=== PATIENT | male | born 1985 | race Caucasian/White ===

== ENCOUNTER → 2019-06-29 | Outpatient (CLI) | payer OTHER ==
[~2019-06-29] MED LIST: GADOBENATE DIMEGLUMINE 1 ML IV ONE; IOPAMIDOL 300 MG/ML 15ML VIAL IT ONE; LIDOCAINE HCL 1% LOCAL INJ 20 ML VIAL ONE
--- NOTE | 2019-06-29 12:13 | Diagnostic Imaging Report ---
Exam: Right hip arthrogram Clinical History: Right hip pain Consent: Benefits and risks were explained to the patient who gave consent to the procedure. Fluoro Time: 0.7 Minutes Total Images: 1 Procedure: The right hip was prepped and draped in usual sterile fashion. 1% lidocaine was used as local anesthetic. Under fluoroscopic guidance, approximately 10 cc of gadolinium and 1:100 dilution along with Isovue 200 mixed in 1:1 dilution was injected into the right hip joint. The patient tolerated the procedure well without any adverse reactions. He was transferred to the MR department for further imaging. Complication: None immediate Impression: 1. Right hip arthrogram as described. Please refer to the MR report for further details. Signed by: Dr. Mohinder Fernandez MD on 06/29/2019 12:10 PM
--- NOTE | 2019-06-29 12:48 | Diagnostic Imaging Report ---
TECHNIQUE: Magnetic resonance imaging of the RIGHT HIP was performed with injected contrast. HISTORY: Hip pain COMPARISON: None available. FINDINGS: Bone: No focal or infiltrative bone marrow replacing abnormality. No osteonecrosis or acute fracture. Femoroacetabular Joint: Alpha angle measures approximately 58 degrees. Acetabular labrum: Focal detachment of the anterosuperior labrum axial image 8 Articular Cartilage: No focal defect. Muscle and tendons: The visualized tendons appear intact. Soft tissues: Otherwise unremarkable. IMPRESSION: Right anterior labral focal detachment. Probable underlying cam impingement morphology. Signed by: Dr. John Rowland M.D. on 06/29/2019 12:46 PM
== END ==
LOC: DX 10:22
PROVIDERS: ATTEND Physician Assistant
DX: M25.551 Pain in right hip (principal)
CPT/HCPCS: 20610; 27093; 73722; A9577; J2001; Q9967